=== PATIENT | female | born 1995 | race Caucasian/White ===

== ENCOUNTER → 2017-11-27 11:23 | Outpatient (CLI) | payer MEDICAID, SELFPAY ==
--- NOTE | 2017-11-27 11:28 | US_ITS ---
US transvaginal HISTORY: ITS.REASON: pelvic pain ORDERING PHYSICIAN: Jewel Francis MD PATIENT AGE: 22 years Comparison: None FINDINGS: The uterus is 6 x 3 x 4 cm with a combined endometrial thickness of 5 mm. No uterine or endometrial mass evident. The left ovary is 2 x 2 cm and contains a few small follicles measuring up to 9 mm. The right ovary is 3.4 x 2.27 m also containing follicles measuring up to 1 cm. There is a small amount of cul-de-sac fluid. IMPRESSION: 1. Bilateral ovarian follicles with small amount of cul-de-sac fluid. 2. Otherwise negative pelvic ultrasound
== END ==
PROVIDERS: PCP Pediatrics; Visit Provider Obstetrics & Gynecology
DX: R10.2 Pelvic and perineal pain (principal)
CPT/HCPCS: 76830

== ENCOUNTER → 2017-12-12 10:22 | Outpatient (CLI) | payer MEDICAID, SELFPAY ==
[2017-12-12 10:25] LABS: Microscopic, Urine URINE MICROSCOPIC (MICROSCOPIC)
[2017-12-12 11:04] LABS: Basophils # 0.1 K/mm3 (0-0.2); Basophils % 0.7 % (0.1-2.0); Eosinophils # 0.6 K/mm3 (0.0-0.4); Eosinophils % 7.1 % (0.1-12.0); Hematocrit 38.1 % (37.0-47.0); Hemoglobin 12.6 g/dL (12.2-16.2); Lymphocytes # 2.3 K/mm3 (0.7-4.5); Lymphocytes % 30.3 K/mm3 (10-50); Mean Corpuscular Hemoglobin 29.6 pg (27.0-31.2); Mean Corpuscular Volume 89.8 fl (81-99); Mean Platelet Volume 7.1 fl (7.4-10.4); Monocytes # 0.3 K/mm3 (0.1-1.0); Neutrophils # 4.5 K/mm3 (1.8-7.8); Neutrophils % 57.9 % (37.0-80.0); Platelet Count 276 K/mm3 (142-424); Red Blood Count 4.24 M/mm3 (4.20-5.40); Red Cell Distribution Width 12.7 % (11.5-17.5); White Blood Count 7.7 K/mm3 (4.5-13.0)
[2017-12-12 11:32] LABS: Urine Pregnancy, HCG Qual. Negative (Negative)
[2017-12-12 12:01] LABS: Appearance,Urine CLEAR (Clear); Bilirubin,Urine Negative (Negative); Blood, Urine Negative (Negative); Color,Urine YELLOW (Yellow); Glucose,Urine (UA) Negative (Negative); Ketones,Urine Negative (Negative); Leukocyte Esterase,Urine Negative (Negative); Nitrate,Urine POSITIVE (Negative); Protein,Urine Negative (Negative); Specific Gravity, Urine 1.015 (1.005-1.030); Urobilinogen,Urine 0.2 EU/dl (0.2)
[2017-12-12 12:16] LABS: Alanine Aminotransferase 22 U/L (12-78); Albumin Level 3.8 gm/dL (3.4-5.0); Albumin/Globulin Ratio 1.3 (1.1-1.8); Alkaline Phosphatase 70 U/L (46-116); Anion Gap 12.3 mEq/L (5-15); Aspartate Amino Transferase 13 U/L (15-37); Bilirubin,Total 0.3 mg/dL (0.2-1.0); Blood Urea Nitrogen 6 mg/dL (7-18); Carbon Dioxide 27 mmol/L (21.0-32.0); Chloride 106 mmol/L (98-107); Creatinine,Serum 0.71 mg/dL (0.55-1.02); Estimated Glomerular Filt Rate 105 ml/min (>60); GFR (African American) 127 ML/MIN (>60); Globulin 2.9 gm/dl (1.3-3.2); Glucose 84 mg/dL (74-106); Potassium 4.3 mmoL/L (3.5-5.1); Sodium 141 mmol/L (136-145); Total Protein,Serum 6.7 gm/dL (6.4-8.2)
[2017-12-12 12:24] LABS: Bacteria,Urine 2+ /lpf; Mucus,Urine Trace /lpf
== END ==
PROVIDERS: Visit Provider Obstetrics & Gynecology
DX: Z01.818 Encounter for other preprocedural examination (principal); R10.2 Pelvic and perineal pain
CPT/HCPCS: 36415; 80053; 81001; 81025; 85025; 87086

== ENCOUNTER 2020-02-27 14:42 | Emergency (ER) | payer MEDICAID, SELFPAY ==
[2020-02-27 15:00] VITALS: BP 92/67; PULSE 68; RESP 20; TEMP 36.8; O2SAT 97; BMI 20.9
--- NOTE | 2020-02-27 15:16 | HMH.EDUTC ---
[facility] [place] Clinical Impression: Dysuria UTI (urinary tract infection) Qualifiers: Urinary tract infection type: site unspecified Hematuria presence: with hematuria Qualified Code(s): N39.0 - Urinary tract infection, site not specified Disposition: Home, Self-Care Condition on Discharge: Good Instructions: Urinary Tract Infection, Urine Culture Additional Instructions: Drink plenty of fluids. Take tylenol for pain or fever. Return if you begin to have difficulty breathing. Follow up with your regular doctor. GO TO THE ER FOR ANY WORSENING SYMPTOMS The pyridium will make your urine turn orange, this is an expected side effect. It will stain your clothes if it comes into contact with them. Prescriptions: cephALEXin [Keflex 500mg Cap] 500 mg PO Q6H 7 Days #28 cap Transmission Status: Received by [facility] #[id number] Referrals: Kamran Ang [Primary Care Provider] - Time of Disposition: 15:24 Medical Decision Making - Medical Records Medical records reviewed: No: I reviewed the patient's medical records. - Lorne Inquiry Pt receiving controlled substance: No Vital Signs: 02/27/20 15:00 02/27/20 15:27 Temperature 98.2 F 98.2 F Temperature Source Oral Pulse Rate 68 Pulse Rate [Right Brachial] 68 Respiratory Rate 20 20 Blood Pressure 92/67 L Blood Pressure [Right Arm] 92/67 L Blood Pressure Mean [Right Arm] 75 Blood Pressure Source [Right Arm] Automatic Cuff Blood Pressure Position [Right Arm] Sitting 02 Sat by Pulse Oximetry 97 Oxygen Delivery Method Room Air - Lab Data Lab results reviewed: Yes: I reviewed the patient's lab results. Lab Results 02/27/20 14:55: Urine Color Yellow, Urine Appearance Clear, Urine pH 7.5, Ur Specific [place] 1.010, Urine Protein Negative, Urine Glucose (UA) Negative, Urine Ketones Negative, Urine Blood Negative, Urine Nitrate Negative, Urine Bilirubin Negative, Urine Urobilinogen 0.2, Ur Leukocyte Esterase Trace 02/27/20 15:23: Tst Clinic Negative Orders (Tests/Meds): ORDERS Category Date Time Status Urine Culture Stat Micro 02/27/20 14:55 [place] [facility] [place] - General Stated complaint: uti Time Seen by Provider: 02/27/20 15:16 Mode of Arrival: Ambulatory Source of Information: Patient Limitations: No Limitations Description of Symptoms (Recalled from Triage Doc. by RN): PATIENT C/O URINARY FREQUENCY AND BURNING WITH URINATION X 3 MONTHS. STATES SHE HAS TAKEN 1 ROUND OF ANTIBIOTICS WITHIN THOSE 3 MONTHS; SYMPTOMS SUBSIDED BUT HAVE RETURNED. ALSO C/O HEADACHE X APPROX 1 WEEK HEENT Symptoms (Recalled from RN notes): Yes Resp Symptoms (Recalled from RN notes): No Skin Symptoms (Recalled from RN notes): No MS Symptoms (Recalled from RN notes): No Functional Status (Recalled from RN notes): WNL - History of Present Illness Provider Complaint: She c/o low back pain and dysuria. She has had these symptoms on and off over the past 3 months. - Related Data Home Medications Medication Instructions Recorded Confirmed pantoprazole 20 mg tablet,delayed 20 mg PO DAILY 11/14/17 04/14/18 release Previous Rx's Medication Instructions Recorded promethazine 25 mg tablet 25 mg PO Q6H PRN #14 tab 12/16/17 cephALEXin [Keflex 500mg Cap] 500 mg PO Q6H 7 Days #28 cap 02/27/20 Allergies Allergy/AdvReac Type Severity Reaction Status Date / Time No Known Allergies Allergy Verified 04/14/18 10:43 - Worker's Comp Is this a Worker's Comp case?: No [facility] History - Hepatitis A Screen Drug use history?: No High risk sexual behaviors?: No History of sexually transmitted infection?: No Currently employed?: No Childcare worker?: No Do you have indoor plumbing?: Yes Do you have electricity?: Yes Attestation statement:: This patient has been screened for Hepatitis A risk factors. I have reviewed the patient's past medical history: Yes Medical History: Reports:: Gastroesophageal Reflux Disea
[2020-02-27 15:27] VITALS: BP 92/67; PULSE 68; RESP 20; TEMP 36.8; O2SAT 97
[2020-02-27 15:28] LABS: Apearance,Urine Clear (Clear); Color,Urine Yellow (Yellow)
[2020-02-27 15:29] LABS: Bilirubin,Urine Negative (Negative); Blood, Urine Negative (Negative); Glucose,Urine (UA) Negative (Negative); Ketones,Urine Negative (Negative); PH,Urine 7.5 (5.0-8.5); Protein,Urine Negative (Negative); UTC Leukocyte Esterase,Urine Trace (Negative); UTC Nitrate,Urine Negative (Negative); Urobilinogen,Urine 0.2 EU/dl (0.2)
[2020-02-27 19:24] LABS: UTC Pregnancy Test, Urine Negative (Negative)
== END 2020-02-27 15:37 | disposition home or self-care (01) ==
PROVIDERS: Emergency Provider Nurse Practitioner Family; PCP Pediatrics
DX: N30.00 Acute cystitis without hematuria (principal); K21.9 Gastro-esophageal reflux disease without esophagitis
CPT/HCPCS: 81003; 81025; 87086; 99201

== ENCOUNTER 2020-12-14 19:25 | Emergency (ER) | payer MEDICAID, SELFPAY ==
[2020-12-14 20:40] VITALS: BP 93/58; PULSE 92; RESP 18; TEMP 36.7; O2SAT 98; BMI 20.5
--- NOTE | 2020-12-14 21:06 | HMH.EDUTC ---
[facility] [place] Clinical Impression: Viral syndrome, Encounter for laboratory testing for COVID-19 virus Disposition: Home, Self-Care Condition on Discharge: Good Instructions: DI for COVID-19 (Suspected or Confirmed ), Preventing the Spread of Coronavirus Discharge Instructions Additional Instructions: *Monitor Temp, Over the counter Tylenol as directed every 4 hours and Motrin every 6 hours (as long as your family doctor has told you that you can take it) for fever or pain. and straight to ER if unable to lower temp less than 101.0 after medication given *Warm salt water gargles may help to soothe the throat *Throat Lozenges *Warm fluids like tea with honey may help to soothe the throat *Sleep elevated *Humidifier/Vaporizer Discuss with pharmacy which cough medication you can take Follow up IMMEDIATELY for new or worsening symptoms or no Noticeable improvement over the next 48-72 hours. 911 for difficulty breathing or swallowing You were tested for today for COVID19 your test result should be back in the next 24-48 hours, you was given [facility] on [email or web address] portal where you can review your results if you do not have internet access you may call the [facility] You was given a handout with instructions for Self Quarantine and Self isolation for while you wait on test results and what to do if they are positive If you are positive the Health Dept will be contacting you also Make sure to take your Vitamins Vit. C Vit D and Zinc if you can take them Referrals: Provider,Referral, [Primary Care Provider] - As needed Forms: Work/School Release Time of Disposition: 21:12 Medical Decision Making - Lorne Inquiry Pt receiving controlled substance: No Lorne was queried for this patient: No Vital Signs: 12/14/20 20:40 Temperature 98.1 F Temperature Source Oral Pulse Rate [Left Brachial] 92 H Respiratory Rate 18 Blood Pressure [Left Arm] 93/58 L Blood Pressure Mean [Left Arm] 69 Blood Pressure Source [Left Arm] Automatic Cuff Blood Pressure Position [Left Arm] Sitting 02 Sat by Pulse Oximetry 98 Oxygen Delivery Method Room Air Orders (Tests/Meds): ORDERS Category Date Time Status Covid-19 Nasal PCR ([facility]) Routine Lab 12/14/20 21:02 Ordered [facility] [place] HPI - General Stated complaint: congested, cough, fever, body aches, soa Time Seen by Provider: 12/14/20 21:06 Mode of Arrival: Ambulatory Source of Information: Patient Limitations: No Limitations Description of Symptoms (Recalled from Triage Doc. by RN): PATIENT C/O COUGH, SOA, CONGESTION AND HEADACHE. 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 and she started feeling bad a day or two ago States that she has been feeling achy, slight cough, headache, nasal congestion and at times felt like she was a little SOA yesterday but feeling better today and he wanted to get tested for COVID - Related Data Home Medications Medication Instructions Recorded Confirmed pantoprazole 20 mg tablet,delayed 20 mg PO DAILY 11/14/17 04/14/18 release Previous Rx's Medication Instructions Recorded promethazine 25 mg tablet 25 mg PO Q6H PRN #14 tab 12/16/17 cephALEXin [Keflex 500mg Cap] 500 mg PO Q6H 7 Days #28 cap 02/27/20 Allergies Allergy/AdvReac Type Severity Reaction Status Date / Time No Known Allergies Allergy Verified 04/14/18 10:43 - Worker's Comp Is this a Worker's Comp case?: No [facility] History - Hepatitis A Screen Drug use history?: No High risk sexual behaviors?: No History of sexually transmitted infection?: No Currently employ
[2020-12-14 21:15] VITALS: BP 93/58; PULSE 92; RESP 18; TEMP 36.7; O2SAT 98
== END 2020-12-14 21:16 | disposition home or self-care (01) ==
PROVIDERS: Emergency Provider Nurse Practitioner
DX: U07.1 COVID-19 (principal)
CPT/HCPCS: 99202; G0463; U0003

== ENCOUNTER → 2022-12-04 23:48 | Outpatient (CLI) | payer MEDICAID, SELFPAY ==
[2022-12-04 19:47] LABS: Basophils % 0.4 % (0.1-2.0); Eosinophils # 0.8 K/mm3 (0.0-0.4); Eosinophils % 8.2 % (0.1-12.0); Hematocrit 42.8 % (37.0-47.0); Hemoglobin 14.2 g/dL (12.2-16.2); Lymphocytes # 2.7 K/mm3 (0.7-4.5); Lymphocytes % 26.7 % (10-50); Mean Corpuscular HGB Conc 33.1 g/dL (31.8-35.4); Mean Corpuscular Hemoglobin 29.9 pg (27.0-31.2); Mean Corpuscular Volume 90.3 fl (81-99); Monocytes # 0.5 K/mm3 (0.1-1.0); Monocytes % 4.9 % (1.7-9.3); Neutrophils % 59.8 % (37.0-80.0); Platelet Count 297 K/mm3 (142-424); Red Blood Count 4.74 M/mm3 (4.20-5.40); White Blood Count 10.1 K/mm3 (4.8-10.8)
[2022-12-04 20:12] LABS: Alanine Aminotransferase 19 U/L (12-78); Albumin Level 4.8 g/dl (3.5-5.0); Alkaline Phosphatase 74 U/L (38-126); Anion Gap 18.1 mEq/L (5-15); Aspartate Amino Transferase 25 U/L (14-36); Bilirubin,Total 0.3 mg/dl (0.2-1.3); Blood Urea Nitrogen 14 mg/dl (7-17); Calcium 9.5 mg/dl (8.4-10.2); Carbon Dioxide 26 mmol/L (22.0-30.0); Chloride 100 mmol/L (98-107); Estimated Glomerular Filt Rate 150 ml/min (>60); GFR (African American) 182 ML/MIN (>60); Globulin 2.4 g/dL (1.3-3.2); Glucose 97 mg/dl (74-100); Potassium 4.1 mmoL/L (3.5-5.1); Sodium 140 mmol/L (136-145); Total Protein,Serum 7.2 g/dl (6.3-8.2)
[2022-12-04 20:51] LABS: Thyroid Stimulating Hormone 0.18 uIU/mL (0.465-4.68)
[2022-12-04 22:03] LABS: Free T4 (Free Thyroxine) 1.05 ng/dl (0.78-2.19)
== END ==
PROVIDERS: PCP Pediatrics; Visit Provider Nurse Practitioner Acute Care
DX: F41.0 Panic disorder [episodic paroxysmal anxiety] (principal); F41.1 Generalized anxiety disorder; F90.2 Attention-deficit hyperactivity disorder, combined type
CPT/HCPCS: 80053; 84439; 84443; 85025

== ENCOUNTER 2023-05-06 19:35 | Outpatient (CLI) | payer MEDICAID, SELFPAY ==
[2023-05-06 18:30] LABS: Amphetamine/Metha Screen,Urine Negative ng/ml (<1000)
[2023-05-06 18:31] LABS: Barbiturates Screen,Urine Negative ng/ml (<200)
[2023-05-06 18:33] LABS: Cannabinoid Screen,Urine Negative ng/ml (<50); Cocaine Screen,Urine Negative ng/ml (<300)
[2023-05-06 18:34] LABS: Methadone Screen,Urine Negative ng/ml (<300)
[2023-05-06 18:35] LABS: Opiate Screen,Urine Negative ng/ml (<300); Phencyclidine Screen,Urine Negative ng/ml (<25)
[2023-05-06 18:38] LABS: Benzodiazepines Screen,Urine Negative ng/ml (<200)
== END 2023-05-06 23:59 ==
LOC: LAB.DROPOF 19:36
PROVIDERS: PCP Nurse Practitioner Acute Care; Visit Provider Nurse Practitioner Acute Care
DX: Z79.899 Other long term (current) drug therapy (principal)
CPT/HCPCS: 80307

== ENCOUNTER 2023-06-10 18:49 | Outpatient (CLI) | payer MEDICAID, SELFPAY ==
[2023-06-10 18:58] LABS: Free T4 (Free Thyroxine) 1.01 ng/dl (0.78-2.19)
[2023-06-10 22:03] LABS: Thyroid Stimulating Hormone 0.73 uIU/mL (0.465-4.68)
[2023-06-12 09:29] LABS: Triiodothyronine (T3) Free 3.2 pg/mL (2.0-4.4)
== END 2023-06-10 23:59 ==
LOC: LAB.DROPOF 18:49
PROVIDERS: PCP Nurse Practitioner Acute Care; Visit Provider Nurse Practitioner Acute Care
DX: R79.89 Other specified abnormal findings of blood chemistry (principal)
CPT/HCPCS: 84439; 84443; 84481